=== PATIENT | female | born 1945 | race Caucasian/White ===

== ENCOUNTER 2022-12-03 16:02 | Outpatient (CLI) | payer MEDICARE, BC, SELFPAY ==
[2022-12-03 15:44] LABS: Abs Immature Grans 0.01 10^3/uL (0.0-0.06); Absolute Basophil Count 0.05 10^3/uL (0.0-0.2); Absolute Eosinophil Count 0.21 10^3/uL (0.0-0.7); Absolute Lymphocyte Count 2.04 10^3/uL (1.2-3.4); Absolute Monocyte Count 0.54 10^3/uL (0.1-0.8); Absolute Neutrophil Count 4.15 10^3/uL (1.2-6.7); Basophils % 0.7; HCT 40.1 % (36.0-46.0); HGB 12.4 g/dL (11.2-15.7); Immature Grans % 0.1; Lymphocytes % 29.1; MCH 26.8 pg (27.0-33.0); MCHC 30.9 % (32.0-36.0); MCV 87 fL (80-95); Monocytes % 7.7; Neutrophils % 59.4; Platelet Count 303 10^3/uL (130-400); RBC 4.63 10^6/uL (3.93-5.22); RDW 14.3 % (11.7-14.6); RDW-SD 45.8 fL
[2022-12-03 15:52] LABS: ESR 4 mm/hr (0-30)
[2022-12-04 18:16] LABS: CRP, High Sensitivity <0.34 mg/L (See Note)
== END 2022-12-03 16:03 | disposition home or self-care (01) ==
LOC: LBO 16:05
PROVIDERS: PCP Nurse Practitioner Family; Visit Provider Podiatrist Foot & Ankle Surgery
DX: E11.621 Type 2 diabetes mellitus with foot ulcer (principal); L97.509 Non-pressure chronic ulcer of other part of unspecified foot with unspecified severity
CPT/HCPCS: 36415; 85652; 86141; 85025